=== PATIENT | female | born 1995 | race Asian ===

== ENCOUNTER 2023-08-16 13:16 | Emergency (ER) | payer OTHER, SELFPAY ==
[2023-08-16 13:26] VITALS: BP 139/62; PULSE 91; RESP 16; TEMP 37.2; O2SAT 100; BMI 38.7
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
[2023-08-16 15:50] VITALS: BP 125/74; PULSE 89; O2SAT 100
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
[2023-08-16 16:30] VITALS: BP 126/72; PULSE 88; RESP 16; TEMP 36.7; O2SAT 98
== END 2023-08-16 16:32 | disposition home or self-care (01) ==
PROVIDERS: Emergency Provider Student in an Organized Health Care Education/Training Program
DX: O26.92 Pregnancy related conditions, unspecified, second trimester (principal); Z3A.26 26 weeks gestation of pregnancy; V89.2XXA Person injured in unspecified motor-vehicle accident, traffic, initial encounter
CPT/HCPCS: 76815; 99281; 99283